=== PATIENT | female | born 1980 | race Asian ===

== ENCOUNTER 2024-05-25 11:47 | Inpatient (IN) | payer OTHER ==
[2024-05-25] MEDS: ELECTROLYTE-148 SOLN 1,000 ML IV SCH (13:15)
[2024-05-25 13:38] LABS: BASO % 0.3 % (0-2.0); HEMATOCRIT 32.7 % (32.4-45.2); HEMOGLOBIN 10.9 GM/dL (10.7-15.3); LYMPH % 15.4 % (8-40); MCH 29.1 pg (25.7-33.7); MCHC 33.5 g/dl (32.0-36.0); MEAN CELL VOLUME 86.9 fl (80-96); MONO % 8.8 % (3.8-10.2); NEUT % 74.5 % (42.8-82.8); PLATELET COUNT 161 10^3/uL (134-434); RBC 3.76 M/mm3 (3.60-5.2); RDW 15.5 % (11.6-15.6); WHITE BLOOD COUNT 7.4 K/mm3 (4.0-10.0)
[2024-05-25 13:46] LABS: INR 0.86 (0.83-1.09); PROTHROMBIN TIME (PATIENT) 9.8 SEC (9.7-13.0)
[2024-05-25 13:49] LABS: ACTIVATED PTT 28.5 SECONDS (25.2-36.5)
[2024-05-25 13:57] LABS: POTASSIUM 4.2 mmol/L (3.5-5.1)
[2024-05-25 13:59] LABS: BLOOD UREA NITROGEN 6.1 mg/dL (7-18); CALCIUM 8.4 mg/dL (8.5-10.1)
[2024-05-25 14:03] LABS: CREATININE 0.6 mg/dL (0.55-1.3)
[2024-05-25 15:10] VITALS: BMI 21.4
[2024-05-25] MEDS: CITRIC ACID/SODIUM CITRATE 30 ML UNIT-DOSE CUP PO ONE (16:25)
[2024-05-25] MEDS ORDERED: morphine SULFATE/PF 1 MG/2 ML (2cc Syringe - QUVA) ONE (17:01)
[2024-05-25] MEDS ORDERED: FENTANYL CITRATE/PF 50 MCG/ML VIAL ONE (17:01)
[2024-05-25] MEDS ORDERED: ceFAZolin SODIUM 1 GM VIAL ONE (17:24)
[2024-05-25 17:49] LABS: HIV INTERPRETATION NEGATIVE (NEGATIVE)
[2024-05-25 18:06] LABS: CORD BASE EXCESS 0.3 mmol/L (0-2); CORD HCO3 26.1 mmHg (20-29); CORD pH 7.363 (7.14-7.44)
[2024-05-25] MEDS ORDERED: PHENYLEPHRINE HCL 10 MG/1 ML SINGLE DOSE VIAL ONE (18:19)
[2024-05-25] MEDS ORDERED: OXYTOCIN 20 UNITS in 0.9% NS 20 UNIT/1,000 ML INFUS.BAG IV ONE (20:19)
[2024-05-25] MEDS ORDERED: ONDANSETRON 4 MG/2 ML VIAL IVPUSH PRN (20:42)
[2024-05-25] MEDS: ACETAMINOPHEN 325 MG TABLET (FP) PO SCH (20:52)
[2024-05-25] MEDS: IBUPROFEN 800 MG/8 ML IJ IVPB PRN (21:28)
[2024-05-26 07:00] VITALS: RESP 18
[2024-05-26] MEDS ORDERED: WITCH HAZEL 50% (TUCKS) 40 PAD/JAR PAD TP PRN (12:42)
[2024-05-26] MEDS ORDERED: METHYLERGONOVINE MALEATE 0.2 MG/1 ML AMP IM PRN (12:42)
[2024-05-26] MEDS: ACETAMINOPHEN 325 MG TABLET (FP) PO PRN (16:08)
[2024-05-26] MEDS: SIMETHICONE 80 MG TAB.CHEW (FP) PO PRN (16:08)
[2024-05-26] MEDS: IBUPROFEN 600 MG TABLET (FP) PO PRN (18:27)
[2024-05-26] MEDS: FERROUS SO4 325 MG TABLET (FP) PO SCH (21:06)
[2024-05-27] MEDS ORDERED: oxyCODONE HCL 5 MG TABLET PO PRN ×2 (00:42)
[2024-05-27] MEDS: LEVOTHYROXINE NA 100 MCG TABLET (FP) PO SCH (06:14)
[2024-05-27 08:09] LABS: BASO % 0.2 % (0-2.0); EOS % 1.9 % (0-4.5); HEMATOCRIT 27.9 % (32.4-45.2); HEMOGLOBIN 9.1 GM/dL (10.7-15.3); LYMPH % 14.6 % (8-40); MCH 28.7 pg (25.7-33.7); MCHC 32.6 g/dl (32.0-36.0); MEAN PLT VOLUME 8.1 fl (7.5-11.1); MONO % 7.1 % (3.8-10.2); NEUT % 76.2 % (42.8-82.8); PLATELET COUNT 159 10^3/uL (134-434); RBC 3.17 M/mm3 (3.60-5.2); RDW 15.6 % (11.6-15.6); WHITE BLOOD COUNT 8.8 K/mm3 (4.0-10.0)
[2024-05-27] MEDS: PRENATAL VITAMINS W/ FOLIC ACID TABLET (FP) PO SCH (09:32)
[2024-05-27 09:49] VITALS: TEMP 98
[2024-05-27] MEDS ORDERED: PATIENT'S OWN MEDICATION (NON-FORMULARY) (Prenatal Vit 93/Iron Fum/Folic [Prenatal Formula PO SCH (10:00)
[2024-05-27] MEDS ORDERED: BISACODYL 10 MG SUPP.RECT RC PRN (12:42)
[2024-05-27] MEDS: OXYTOCIN 20 UNITS in 0.9% NS 20 UNIT/1,000 ML INFUS.BAG IV SCH (19:43)
[2024-05-27 22:06] VITALS: BP 116/73; PULSE 80
== END 2024-05-28 14:45 | disposition home or self-care (01) | DRG 540 ==
LOC: JDEL 11:47 → JLDR 13:10 → J3W 20:24
PROVIDERS: ADMIT Obstetrics & Gynecology; ATTEND Obstetrics & Gynecology
PROC: 10D00Z1 Extraction of Products of Conception, Low, Open Approach (ICD-10-PCS; principal; 2024-05-25)
DX: O36.5930 Maternal care for other known or suspected poor fetal growth, third trimester, not applicable or unspecified (principal); O34.211 Maternal care for low transverse scar from previous cesarean delivery; N85.8 Other specified noninflammatory disorders of uterus; Z3A.37 37 weeks gestation of pregnancy; Z37.0 Single live birth
CPT/HCPCS: 36415; 36600; 59025; 59409; 80048; 82803; 85025; 85461; 85610; 85730; 86780; 86803; 86850; 86870; 86880; 86900; 86901; 86902; 87389; 88307-TC; 94010